=== PATIENT | female | born 1940 | race Caucasian/White ===

== ENCOUNTER 2022-02-12 09:03 | Emergency (ER) | payer MEDICARE ==
[~2022-02-12] VITALS: Ht 160 cm; Wt 99.8 kg
[2022-02-12 09:05] VITALS: BP_SYST 164
--- NOTE | 2022-02-12 09:05 | NUR ---
Placed in room 7 . Placed on monitoring manager, blood pressure machine and pulse oximeter. To gown for exam. Side rails up. Report given to SARAH LOUIS.
--- NOTE | 2022-02-12 09:07 | NUR ---
ER DR. RODRIGUEZ EXAMINING PT
--- NOTE | 2022-02-12 09:17 | NUR ---
assessed pt at bed side room 7, pt in bed with rails up and bed locked. pt vs stable.
[2022-02-12] MEDS ORDERED: ONDANSETRON HCL 4 MG/2 ML VIAL IVP ONE (09:30)
[2022-02-12] MEDS ORDERED: KETOROLAC TROMETHAMINE 15 MG VIAL IVP ONE (09:30)
--- NOTE | 2022-02-12 10:00 | NUR ---
20 g iv inserted into patients left ac, blood labs drawn at the time, pt iv was flushed to check with patency, no acute changes in pt vital signs
--- NOTE | 2022-02-12 10:32 | NUR ---
ULTRA sound at pt bedside, administered antinausea and anti pain me. patient tolorated and is in stable condition no acute changes in vital signs. pt prior to anti pain med is a 6. bed is lowered and locked one rail up as ultrasound being conducted
[2022-02-12] MEDS ORDERED: LOSA25TA3 PO (10:46)
[2022-02-12] MEDS ORDERED: TRAM50TA2 PO (10:46)
[2022-02-12] MEDS ORDERED: MULT-976 PO (10:46)
[2022-02-12] MEDS ORDERED: SULF500T8 PO (10:46)
[2022-02-12] MEDS ORDERED: TRAZ-250 PO (10:46)
[2022-02-12] MEDS ORDERED: NITR0.4T47 SL (10:46)
[2022-02-12] MEDS ORDERED: SSREG SUBCUT (10:46)
[2022-02-12] MEDS ORDERED: CA C1TAB92 PO (10:46)
[2022-02-12] MEDS ORDERED: AMLO5TAB4 PO (10:46)
[2022-02-12] MEDS ORDERED: EPOE200011 SUBCUT (10:46)
[2022-02-12] MEDS ORDERED: ERGO800011 (10:46)
[2022-02-12] MEDS ORDERED: WARF10TA43 PO (10:46)
[2022-02-12] MEDS ORDERED: LEVO100T9 PO (10:46)
[2022-02-12] MEDS ORDERED: LOPE2CAP PO (10:46)
[2022-02-12] MEDS ORDERED: CALC-823 PO (10:46)
[2022-02-12] MEDS ORDERED: SENN-22 PO (10:46)
[2022-02-12] MEDS ORDERED: WARF4TAB72 PO ×3 (10:46→13:09)
[2022-02-12] MEDS ORDERED: PANT20TA2 PO (10:46)
[2022-02-12] MEDS ORDERED: ISOS60TA71 PO (10:46)
[2022-02-12] MEDS ORDERED: PRED5TAB PO (10:46)
[2022-02-12] MEDS ORDERED: LIP40 PO (10:46)
[2022-02-12] MEDS ORDERED: FURO-150 PO (10:46)
[2022-02-12] MEDS ORDERED: CLOP75TA32 PO (10:46)
[2022-02-12] MEDS ORDERED: CARV25TA55 PO ×2 (10:46)
[2022-02-12] MEDS ORDERED: FERR236T3 PO ×2 (10:46)
[2022-02-12 10:50] LABS: BASOPHILS # (AUTO) 0.1 K/uL (0.0-0.2); EOSINOPHILS # (AUTO) 0.5 K/uL (0.0-0.4); EOSINOPHILS % (AUTO) 4.6 % (0.0-4.0); HEMATOCRIT 25.8 % (36-48); HEMOGLOBIN 8.3 g/dL (12.0-16.0); LYMPHOCYTES # (AUTO) 1.4 K/uL (1.0-5.5); LYMPHOCYTES % (AUTO) 12.8 % (20.5-51.5); MEAN CORPUSCULAR HEMOGLOBIN 32 pg (27-31); MEAN CORPUSCULAR HGB CONC 32 % (32-36); MEAN CORPUSCULAR VOLUME 98 fL (79.0-98.0); MONOCYTES # (AUTO) 0.6 K/uL (0.0-1.0); MONOCYTES % (AUTO) 5.5 % (1.7-9.3); NEUTROPHILS # (AUTO) 8.6 K/uL (1.8-7.7); NEUTROPHILS % (AUTO) 76.1 % (40.0-70.0); PLATELET COUNT (AUTO) 298 K/uL (130-430); RED BLOOD CELL COUNT(AUTO) 2.63 MIL/uL (4.2-6.2); RED CELL DISTRIBUTION WIDTH 14.8 % (9.0-15.0); WHITE BLOOD COUNT (AUTO) 11.2 K/uL (4.8-10.8)
[2022-02-12] MEDS ORDERED: MORPHINE 4 MG INJ. 4 MG/ML VIAL IVP ONE (11:00)
[2022-02-12] MEDS ORDERED: METOCLOPRAMIDE HCL 10 MG/2 ML VIAL IVP ONE (11:15)
--- NOTE | 2022-02-12 11:40 | NUR ---
Perineal care done for patient, black stool noted, per daughter patient takes Iron everyday, no N/V noted MD awared, will cont to monitor.
[2022-02-12 11:45] LABS: ANION GAP 9 (5-15); CALCIUM 8.9 mg/dL (8.4-11.0); CHLORIDE 114 mmol/L (98-107); CREATININE 4.59 mg/dL (0.55-1.30); GLUCOSE 159 mg/dL (70-99); POTASSIUM 4.8 mmol/L (3.5-5.1); SODIUM SERUM 143 mmol/L (136-145); UREA NITROGEN, BLOOD 68 mg/dL (8-21)
[2022-02-12 11:56] LABS: ALANINE AMINOTRANSFERASE 14 U/L (12-78); ALBUMIN 2.3 g/dL (3.4-4.8); ASPARTATE AMINOTRANSFERASE 25 U/L (10-37); LIPASE 147 U/L (73-393)
[2022-02-12 11:59] LABS: TOTAL BILIRUBIN < 0.1 mg/dL (0.0-1.0)
[2022-02-12 12:16] LABS: BILIRUBIN,URINE NEGATIVE (NEGATIVE); BLOOD, URINE 1+ (NEGATIVE); CLARITY/URINE CLEAR (CLEAR); COLOR,URINE YELLOW (YELLOW); GLUCOSE,URINE 1+ (NEGATIVE); KETONES,URINE NEGATIVE (NEGATIVE); LEUKOCYTE ESTERASE ,URINE NEGATIVE (NEGATIVE); NITRITE, URINE NEGATIVE (NEGATIVE); PROTEIN URINE 3+ (NEGATIVE); UROBILINOGEN,URINE 0.2 (0.2-1.0)
[2022-02-12 13:05] LABS: BACTERIA,URINE None Seen /HPF (None Seen); WBC,URINE 0-3 /HPF (0-3)
--- NOTE | 2022-02-12 13:18 | NUR ---
Pt resting in bed at this time,VSS
--- NOTE | 2022-02-12 15:45 | NUR ---
Called rubina and gave report to Rubina (Nicol SMITH), pt on stable condition at this time.
--- NOTE | 2022-02-12 16:32 | NUR ---
Pt resting at this time, VSS, respirations even and unlabored
--- NOTE | 2022-02-12 18:01 | NUR ---
Perineal care done for patient at this time, VSS.
[2022-02-12 18:02] VITALS: BP_SYST 179
--- NOTE | 2022-02-12 18:04 | NUR ---
Patient to be transferred to [facility] . Is being transferred due to higher level of care. Receiving facility has accepting physician and available space. ER physician has signed transfer form. Patient or responsible republican has agreed to transfer and signed form. Patient belongings inventoried and will be sent with patient. Copy of nursing notes, lab reports, EKG, Physicians Orders and X-rays to be sent with patient. Report called to Sharda SMITH at receiving facility. Receiving physician is Dr Booth. ambulance service has been called for transfer.
--- NOTE | 2022-02-13 09:03 | NUR ---
Called Candido Guzman.
== END 2022-02-12 18:04 ==
LOC: SED 09:03
DX: R10.84 Generalized abdominal pain (principal); I50.20 Unspecified systolic (congestive) heart failure; D53.9 Nutritional anemia, unspecified; Z88.1 Allergy status to other antibiotic agents; Z79.899 Other long term (current) drug therapy; Z20.822 Contact with and (suspected) exposure to COVID-19
CPT/HCPCS: 36415; 71045; 74176; 76376; 76705; 80053; 81000; 83605; 83690; 83880; 84484; 85025; 87040; 87186; 87426; 93005; 96374; 96375; 99285; J1885; J2270; J2405; J2765